=== PATIENT | female | born 1995 | race Caucasian/White ===

== ENCOUNTER 2020-05-03 16:49 | Emergency (ER) | payer OTHER, SELFPAY ==
--- NOTE | ~2020-05-03 | XR_ITS ---
XR knee LT 3V DATE: 05/03/2020 17:51 INDICATION: Bilateral knee pain TECHNIQUE: 3 views including crosstable lateral COMPARISON: None FINDINGS: No fracture or dislocation or joint effusion. No periosteal reaction or bone destruction. N o radiopaque intra-articular this body or chondrocalcinosis. IMPRESSION: No significant abnormality Reviewed, dictated and finalized at location A. IMPRESSION: No significant abnormality
--- NOTE | ~2020-05-03 | XR_ITS ---
XR soft tissue neck DATE: 05/03/2020 17:51 INDICATION: Dysphagia for one month. History of tonsillectomy. TECHNIQUE: AP and lateral views COMPARISON: None FINDINGS: No prevertebral soft tissue swelling. Normal size of the epiglottis. Normal tracheal air co lumn. No obvious soft tissue mass is detected. No subcutaneous emphysema, pneumothorax or pneumomedia stinum is evident. There is mild reversal cervical curvature. The cervical interspaces are well preserved. The cervical spine is normally aligned. IMPRESSION: No significant abnormality of the soft tissues of the neck Reviewed, dictated and finalized at location A.
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
[2020-05-03 17:02] VITALS: BP 129/77; PULSE 97; RESP 20; TEMP 36.8; O2SAT 100
[2020-05-03 18:51] VITALS: BP 132/70; PULSE 88; RESP 18; O2SAT 99
== END 2020-05-03 18:52 | disposition home or self-care (01) ==
PROVIDERS: Emergency Provider Emergency Medicine; PCP Family Medicine
DX: S00.83XA Contusion of other part of head, initial encounter (principal); V49.40XA Driver injured in collision with unspecified motor vehicles in traffic accident, initial encounter
CPT/HCPCS: 70360; 73562; 99284

== ENCOUNTER 2022-05-14 14:58 | Outpatient (CLI) | payer OTHER, SELFPAY ==
--- NOTE | ~2022-05-14 | XR_ITS ---
EXAMINATION: XR lumbar spine min 4V DATE: 05/14/2022 15:21 INDICATION: Bilateral leg pain. TECHNIQUE: 5 views of the lumbar spine were obtained. COMPARISON: CT abdomen and pelvis 03/09/2019 FINDINGS: Bone alignment is normal. Vertebral body heights and intervertebral disc heights are normal . There is multilevel mild facet joint osteoarthritis. IMPRESSION: 1. Mild lumbar facet joint osteoarthritis. Reviewed, dictated and finalized at location A.
== END 2022-05-14 14:59 | disposition home or self-care (01) ==
LOC: ANHIMG 15:01
PROVIDERS: PCP Family Medicine; Visit Provider Physician Assistant Medical
DX: M54.41 Lumbago with sciatica, right side (principal); M54.42 Lumbago with sciatica, left side; M51.36 Other intervertebral disc degeneration, lumbar region
CPT/HCPCS: 72110

== ENCOUNTER 2023-08-07 08:08 | Outpatient (CLI) | payer OTHER, SELFPAY ==
--- NOTE | ~2023-08-07 | DEXA_ITS ---
Bone Density Report Name: RADHA NOBLE Age: 27 Sex: Female Ethnicity: White Date of : 1995 Indication: skilled nursing use of Depo Provera Referring Provider: BIJU VO Study: Bone densitometry was performed. Exam Date: August 07, 2023 Accession number: [id number] Bone Density: Region BMD T-score Z-score Classification AP Spine(L1-L4) 0.945 -0.9 Femoral Neck (Left) 0.735 -1.0 Total Hip (Left) 0.907 -0.3 Femoral Neck (Right) 0.704 -1.2 Total Hip (Right) 0.880 -0.5 Total Hip Mean 0.894 -0.4 World Health Organization criteria for BMD impression classify patients as: Normal (T-score at or above -1.0), Osteopenia (T-score between -1.0 and -2.5), or Osteoporosis (T-score at or below -2.5). Clinical Information Provided by Patient: Patient maximum height was 67 No regular weight bearing exercise Does not regularly consume dairy products Drinks caffeinated beverages Onset of menses at age 11 Premenopausal Number of children 0 Impression: The patient's bone mass is within expected range for age, gender and ethnicity. Discussion: BONE DENSITY IS WITHIN EXPECTED LIMITS FOR AGE, SEX AND RACE. Bone density is within expected limits for age, sex and race at all sites measured. The patient should follow a healthful lifestyle (good nutrition with adequate calcium and vitamin D, and appropriate weight-bearing exercise). Follow-Up: Consider repeating this study in 5 years or sooner if there is some new clinical indication. Reported by: [facility] on 08/07/2023 8:27:00 AM. Reviewed, dictated and finalized at location [facility]
== END 2023-08-07 08:09 | disposition home or self-care (01) ==
LOC: ANHIMG 08:10
PROVIDERS: PCP Family Medicine; Visit Provider Family Medicine
DX: Z79.3 Long term (current) use of hormonal contraceptives (principal)
CPT/HCPCS: 77080

== ENCOUNTER 2024-01-16 19:14 | Emergency (ER) | payer OTHER, SELFPAY ==
--- NOTE | ~2024-01-16 | XR_ITS ---
EXAMINATION: XR chest 1V portable DATE: 01/16/2024 19:46 INDICATION: Chest pain. TECHNIQUE: A single frontal view of the chest was obtained. COMPARISON: Chest single view 08/05/2019, CT abdomen and pelvis 03/09/2019 FINDINGS: There is no pneumonia, pleural effusion, or pneumothorax. The heart size is normal. IMPRESSION: 1. No acute cardiopulmonary disease. Reviewed, dictated and finalized at location E.
--- NOTE | 2024-01-16 19:18 | ECG_ITS ---
SEE SCANNED COPY FOR CONFIRMED REPORT MTDD
[2024-01-16 19:22] VITALS: BP 118/76; PULSE 91; RESP 20; TEMP 36.4; O2SAT 100
[2024-01-16] MEDS: ASPIRIN 81 MG CHEWABLE TABLET 324 MG PO (19:27)
[2024-01-16 19:32] VITALS: PULSE 90
[2024-01-16 19:33] VITALS: O2SAT 100
[2024-01-16 19:35] LABS: Basophils Absolute Auto 0.1 K/mm3 (0.0-0.1); Basophils Percent Auto 0.5 % (0.2-1.2); Eosinophils Absolute Auto 0.1 K/mm3 (0-0.3); Eosinophils Percent Auto 1.2 % (0-4.4); Hematocrit 40.6 % (37.0-47.0); Hemoglobin 13.7 g/dL (12.0-15.0); Immature Granulocyte Absolute 0.02 K/mm3 (0.00-0.031); Immature Granulocyte Percent A 0.2 % (0-0.5); Lymphocytes Absolute Auto 4.27 K/mm3 (0.9-3.2); Lymphocytes Percent Auto 41.2 % (18.3-44.2); Mean Corpuscular HGB Conc 33.7 g/dl (32-36); Mean Corpuscular Hemoglobin 30.9 pg (26-34); Mean Corpuscular Volume 91.6 fl (80-100); Mean Platelet Volume 9.7 fl (7.4-10.4); Monocytes Absolute Auto 0.5 K/mm3 (0.1-0.6); Monocytes Percent Auto 4.9 % (2.6-8.5); Neutrophils Absolute Auto 5.4 K/mm3 (1.3-6.7); Platelet Count Result 301 k/mm3 (150-375); Red Blood Count 4.43 M/mm3 (4.2-5.4); White Blood Count 10.4 K/mm3 (4.5-10.0)
[2024-01-16 19:45] LABS: Alanine Aminotransferase 13 U/L (6-35); Albumin Level 4.8 g/dL (3.5-5.1); Alkaline Phosphatase 65 U/L (38-126); Anion Gap 8 mmol/L (4-12); Aspartate Amino Transferase 22 U/L (14-36); Bilirubin,Total 0.4 mg/dL (0.2-1.3); Blood Urea Nitrogen 16 mg/dL (7-17); Calcium 9.6 mg/dL (8.4-10.2); Carbon Dioxide 23 mmol/L (22-30); Chloride 110 mmol/L (98-107); Estimated CRCL calculation 76 ml/min; Estimated Glomerular Filt Rate > 60; Glucose 97 mg/dL (65-110); Lipase 186 U/L (23-300); Potassium 3.7 mmol/L (3.4-5.0); Sodium 141 mmol/L (137-145)
[2024-01-16 19:50] LABS: Prothrombin Time 13.8 Seconds (11.1-14.7)
[2024-01-16 19:51] LABS: Partial Thromboplastin Time 27.5 Seconds (22.3-36.8)
--- NOTE | 2024-01-16 19:52 | ED.CHESTPAIN ---
HPI - Chest Pain General Chief Complaint: Chest Pain Stated Complaint: chest pain Time Seen by Provider: 01/16/24 19:34 Source: patient Mode of arrival: ambulatory Limitations: no limitations History of Present Illness HPI narrative: Patient is a 28 y/o female who presents to the ED with c/o chest pain. Patient reports the pain began last night in the evening. Has been constant since the onset. Did become worse throughout the night and woke her up from her sleep at one point. Radiates through to her back. Denies aggravating or relieving factors. She has not taken for the pain. Does report pain is improved slightly currently. Denies shortness of breath, pain or swelling in her legs, abdominal pain, recent cough or cold symptoms, disease, lightheadedness. She does report recent diarrhea, intermittent nausea. Denies history of blood clots or cardiac disease. Related Data Allergies Allergy/AdvReac Type Severity Reaction Status Date / Time No Known Allergies Allergy Verified 05/15/22 13:28 Review of Systems Review of Systems: CONSTITUTIONAL: Denies fever, chills, or sweats. ENT: Denies rhinorrhea, congestion, sore throat. CARDIOVASCULAR: See HPI. RESPIRATORY: Denies cough or dyspnea. GASTROINTESTINAL: See HPI. MUSCULOSKELETAL: See HPI. NEUROLOGIC: Denies headache, dizziness, numbness, or weakness. All systems reviewed & are unremarkable except as noted in HPI and below PMFSH Past Medical History Medical History BMI 27.0-27.9,adult BMI 28.0-28.9,adult Chronic left-sided headaches Chronic tension-type headache, not intractable COVID-19 Encounter for contraceptive management Irritable bowel syndrome with diarrhea senior living current use of hormonal contraceptive Family History Family History Father COPD (chronic obstructive pulmonary disease) Emphysema lung Mother Hypertension COVID-19 Hyperlipidemia Sibling No problems noted. 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 HEAD: Normocephalic, atraumatic. RESPIRATORY: Airway patent, respirations nonlabored. Clear to auscultation bilaterally, no rales, rhonchi, wheezing. No focal lung sounds. CARDIOVASCULAR: Regular rate and rhythm without murmurs, rubs, or gallops. ABDOMINAL: Soft, no tenderness throughout abdomen, nondistended. Normoactive BS. MUSCULOSKELETAL: Moves all extremities. No gross deformities. No lower extremity edema. No calf tenderness. No chest wall tenderness to palpation. SKIN: Warm, dry, normal color. NEURO: A&O X3. Speech clear. PSYCHIATRIC: Appropriate mood and affect. Normal interaction. Course Vital Signs Vital signs: Vital Signs Temperature 97.6 F 01/16/24 19:22 Pulse Rate 91 01/16/24 19:22 Respiratory Rate 20 01/16/24 19:22 Blood Pressure 118/76 01/16/24 19:22 Pulse Oximetry 100 01/16/24 19:22 Oxygen Delivery Room Air 01/16/24 19:22 Temperature 97.6 F 01/16/24 19:22 Pulse Rate 88 01/16/24 20:22 Respiratory Rate 12 01/16/24 20:22 Blood Pressure 100/61 01/16/24 20:22 Pulse Oximetry 100 01/16/24 20:22 Oxygen Delivery Room Air 01/16/24 19:33 MDM - Chest Pain MDM Narrative Medical decision making narrative: Patient presented to ED with report of midsternal chest pain, radiating through to back, onset last night, constant since then. Reports mild improvement currently af
[2024-01-16 19:56] LABS: Troponin I < 0.012 ng/mL (0.000-0.034)
[2024-01-16 20:20] LABS: Magnesium 2.3 mg/dL (1.6-2.3)
[2024-01-16 20:22] VITALS: BP 100/61; PULSE 88; RESP 12; O2SAT 100
[2024-01-16 21:02] LABS: D Dimer 0.31 ug/mL (<0.48)
[2024-01-16 21:35] VITALS: BP 109/77; PULSE 76; RESP 18; O2SAT 98
== END 2024-01-16 21:38 | disposition home or self-care (01) ==
PROVIDERS: Emergency Medicine; Emergency Provider Physician Assistant; PCP Family Medicine
DX: R07.89 Other chest pain (principal); K58.0 Irritable bowel syndrome with diarrhea; Z86.16 Personal history of COVID-19
CPT/HCPCS: 36415; 71045; 80053; 83690; 83735; 84484; 85025; 85380; 85610; 85730; 93005; 99284; A9270

== ENCOUNTER 2024-10-15 15:36 | Outpatient (CLI) | payer OTHER, SELFPAY ==
--- NOTE | ~2024-10-15 | MR_ITS ---
EXAMINATION: MR brain/brain stem wo/w con DATE: 10/15/2024 16:32 INDICATION: Migraine, unspecified, not intractable. TECHNIQUE: Magnetic resonance imaging (MRI) of the brain and brainstem was performed without and with 16 mL MultiHance intravenous contrast. COMPARISON: Brain MRI 09/25/2012 FINDINGS: There is no intracranial hemorrhage, acute infarction, or abnormal intracranial mass lesion . The ventricles are normal in size. The orbits are normal. The paranasal sinuses are clear. The mast oid air cells are normal. IMPRESSION: 1. Normal brain. Reviewed, dictated and finalized at location A. IC WORKS TECHNICIAN IMPRESSION: 1. Normal brain.
--- OUTSIDE RECORDS SUMMARY | 2024-10-15 15:39 | XMS_ITS | Clinical Summary ---
Author Organization [facility] [email or web address] Address [address] [place] [address] Care Team Providers Care Tool Setter Name Role Phone Unavailable Primary Care Provider Unavailabl e Source Comments [facility] [email or web address],non-owned Affiliates and Associated Physician Practices is amultiple site organization consisting of ambulatory clinics and hospital sitesin [place], [place], [place] and [place]. This disclosure is being madepursuant to the Care Everywhere program and may not contain all information available regarding this patient. Last updated 18.[facility] [email or web address] Allergies No known active allergies Medications Be aware that medications may not be up to date on this document. Always verify current medications with the patient. No known medications Social History Tobacco Use Types Packs/Day Years Used Date Smoking Tobacco: Never Assessed Sex and Gender Information Value Date Recorded Sex Assigned at Not on file Gender Identity Not on file Sexual Orientation Not on file Last Filed Vital Signs Vital Sign Reading Time Taken Comments Blood Pressure 112/76 08/31/2016 4:38 PM TIMBER MANAGEMENT SPECIALIST Pulse 90 08/31/2016 4:38 PM TIMBER MANAGEMENT SPECIALIST Temperature 37.7 C (99.8 F) 08/31/2016 4:38 PM TIMBER MANAGEMENT SPECIALIST Respiratory Rate 16 08/31/2016 4:38 PM TIMBER MANAGEMENT SPECIALIST Oxygen Saturation - - Inhaled Oxygen Concentration - - Weight 61.2 kg (135 lb) 08/31/2016 4:38 PM TIMBER MANAGEMENT SPECIALIST Height 172.7 cm (5' 8 ) 08/31/2016 4:38 PM TIMBER MANAGEMENT SPECIALIST Body Mass Index 20.53 08/31/2016 4:38 PM TIMBER MANAGEMENT SPECIALIST Plan of Treatment Health Maintenance Due Date Last Done Comments PAP SMEAR 1995 HIV SCREENING 2009 HEPATITIS C SCREENING 09/18/2012 DTAP/TDAP/TD VACCINES (1 - Tdap) 2013 HEPATITIS B VACCINE (1 of 3 - 19+ 3-dose series) 2013 COVID-19 VACCINE (1 2023-2 5 season) 2024 INFLUENZA VACCINE (#1) 2024 DEPRESSION SCREENING 09/02/2024 ZOSTER VACCINE (1 of 2) 2044 HIB VACCINE Aged Out No longer eligi ble based on patient's age to complete this topic HPV VACCINE Aged Out No longer eligi ble based on patient's age to complete this topic MENINGOCOCCAL (Group B) VACCINE Aged Out No longer eligible based on patient's age to complete this topic MENINGOCOCCAL VACCINE Aged Out No will mukesh eligible based on patient's age to complete this topic PNEUMOCOCCAL VACCINE Aged Out No long er eligible based on patient's age to complete this topic
--- OUTSIDE RECORDS SUMMARY | 2024-10-15 15:39 | XMS_ITS | Referral Summary ---
Author Organization [facility] [employer] Address [address] [place] [address] Care Team Providers Care Cancer Program Coordinator Name Role Phone Unavailable Primary Care Provider Unavailabl e Source Comments [facility] [employer],non-owned Affiliates and Associated Physician Practices is amultiple site organization consisting of ambulatory clinics and hospital sitesin [place], [place]. This disclosure is being madepursuant to the Care Everywhere program and may not contain all information available regarding this patient. Last updated 18.[facility] [employer] Allergies No known active allergies Medications Be [...] Comments Blood Pressure 112/76 08/31/2016 4:38 PM JUDGE CLERK Pulse 90 08/31/2016 4:38 PM JUDGE CLERK Temperature 37.7 C (99.8 F) 08/31/2016 4:38 PM JUDGE CLERK Respiratory Rate 16 08/31/2016 4:38 PM JUDGE CLERK Oxygen Saturation - - Inhaled Oxygen Concentration - - Weight 61.2 kg (135 lb) 08/31/2016 4:38 PM JUDGE CLERK Height 172.7 cm (5' 8 ) 08/31/2016 4:38 PM JUDGE CLERK Body Mass Index 20.53 08/31/2016 4:38 PM JUDGE CLERK Plan of Treatment Not on file
--- OUTSIDE RECORDS SUMMARY | 2024-10-15 15:39 | XMS_ITS | Patient Health Summary ---
Author Organization [facility] [employer] Address [address] [place] [address] Care Team Providers Care Fish Technologist Name Role Phone Unavailable Primary Care Provider Unavailabl e Note from [facility] [employer] [facility],non-owned Affiliates and Associated Physician Practices is amultiple site organization consisting of ambulatory clinics and hospital sitesin [place], [place], [place] and [place]. This disclosure is being madepursuant to the Care Everywhere program and may not contain all information available regarding this patient. Last updated 18.[facility] [employer] Allergies No known active allergies Medications Be [...] Comments Blood Pressure 112/76 08/31/2016 4:38 PM HIGHER LEVEL TEACHING ASSISTANT Pulse 90 08/31/2016 4:38 PM HIGHER LEVEL TEACHING ASSISTANT Temperature 37.7 C (99.8 F) 08/31/2016 4:38 PM HIGHER LEVEL TEACHING ASSISTANT Respiratory Rate 16 08/31/2016 4:38 PM HIGHER LEVEL TEACHING ASSISTANT Oxygen Saturation - - Inhaled Oxygen Concentration - - Weight 61.2 kg (135 lb) 08/31/2016 4:38 PM HIGHER LEVEL TEACHING ASSISTANT Height 172.7 cm (5' 8 ) 08/31/2016 4:38 PM HIGHER LEVEL TEACHING ASSISTANT Body Mass Index 20.53 08/31/2016 4:38 PM HIGHER LEVEL TEACHING ASSISTANT Procedures * DERMATOPATHOLOGY(Performed 05/15/2022) * INFLUENZA A+B - POINT OF CARE (AMB)(Performed 08/31/2016) Performed for Acute nasopharyngitis (common cold) * STREP A SCREEN - POINT OF CARE (AMB) STL(Performed 08/31/2016) Performed for Acute pharyngitis, unspecified etiology Results * DERMATOPATHOLOGY (05/15/2022 12:00 AM CDT) Case Report Dermatopathology Report Case: [id number] Authorizing Provider: Carroll Olmos MD Collected: 05/15/2022 12:00 AM Ordering Location: [facility] Received: 05/16/2022 08:33 AM Pathologist: Aaron Whitten MD Specimen: Skin, right low back 11:53 AM CDT DERMATOPATHOLOGY LABORATORY Final Diagnosis Specimen A. SKIN, right low back: COMPOUND MELANOCYTIC NEVUS, IRRITATED (D22.5) PRESENT AT MARGIN 11:53 AM CDT DERMATOPATHOLOGY LABORATORY Clinical History Changing Lesion. Please Check Margins. 11:53 AM CDT DERMATOPATHOLOGY LABORATORY Gross Description Specimen A: Received is one formalin filled container labeled with the patient's name and designated right low back. The specimen consists of a shave biopsy measuring [id number] and it is inked. Jar 0. 11:53 AM CDT DERMATOPATHOLOGY LABORATORY Microscopic Description Specimen A. SKIN, right low back: There is melanin pigment in the stratum corneum. There are nests of melanocytes at the dermal-epidermal junction and within the dermis. This lesion is present at the margin of the specimen. 11:53 AM CDT DERMATOPATHOLOGY LABORATORY Disclaimer An external and internal positive and negative controls are appropriate for the histochemical, immunohistochemical and immunofluorescence stain(s) in this case (if any), except where stated explicitly. The performance characteristics of the stain(s) cited in this report were developed and its performance characteristic determined by the Dermatopathology Laboratory at [facility], directed by Dr. Naresh Whitten. These tests need not be, and therefore are not, approved by the [place] Food and Drug Administration. The tests are used for clinical purposes. Billing Codes Specimen Charges Stain Charges 45706 1 11:53 AM CDT DERMATOPATHOLOGY LABORATORY Embedded Images 11:53 AM CDT DERMATOPATHOLOGY LABORATORY Pathology/Cytolog y TISSUE SPECIMEN FROM SKIN / Unknown 05/15/2022 05/16/2022 8:33 AM CDT Carroll Olmos MD LAB - PATHOLOGY/CYTO LOGY ORDERABLES DERMATOPATHOLOGY LABORATORY [facility] - Department of Dermatology [address], [address] [phone] * INFLUENZA A+B - POINT OF CARE (AMB) (08/31/2016 4:55 PM HIGHER LEVEL TEACHING ASSISTANT) Influenza A Antigen Rapid Negative Negative Influenza B Antigen Rapid Negative Negative Influenza Internal Control positive NEGATIVE - POSITIVE Influenza Lot Number [id number] Influenza Expiration Date 3312,018 Other NASOPHARYNGEAL SWAB / Unknown 08/31/2016 4:55 PM HIGHER LEVEL TEACHING ASSISTANT Yeny Smith [facility] LAB - POINT O F CARE ORDERABLES * STREP A SCREEN (08/31/2016 4:43 PM HIGHER LEVEL TEACHING ASSISTANT) Strep A Rapid POCT Negative Negative Strep A Internal Control Present Lot # [id number] Expiration Date 8234184 Throat ENTIRE THROAT (SURFACE REGION OF NECK) / Unknown 08/31/2016 4:43 PM HIGHER LEVEL TEACHING ASSISTANT Yeny Smith [facility] - POINT O F CARE ORDERABLES
--- OUTSIDE RECORDS SUMMARY | 2024-10-15 15:39 | XMS_ITS | Encounter Summary ---
Author Organization [facility] Address [address] [place] [address] Care Team Providers Care Air Traffic Instructor Name Role Phone Unavailable Primary Care Provider Unavailabl e Encounter Details Date Type Department Care Team (Late st Contact Info) Description 05/16/2022 Lab Requisition [facility] [address] [place] [address] Carroll Olmos MD [address] [place] [address] Social History Tobacco Use Types Packs/Day Years Used Date Smoking Tobacco: Never Assessed Sex and Gender Information Value Date Recorded Sex Assigned at Not on file Gender Identity Not on file Sexual Orientation Not on file documented as of this encounter Plan of Treatment Not on file documented as of this encounter Procedures Procedure Name Priority Date/Time Associated Diagnosis Comments DERMATOPATHOLOGY Routine 05/15/2022 12:0 0 AM CDT documented in this encounter Results * DERMATOPATHOLOGY (05/15/2022 12:00 AM CDT) Case Report Dermatopathology Report Case: [id number] Authorizing Provider: Carroll Olmos MD Collected: 05/15/2022 12:00 AM Ordering Location: [facility] Received: 05/16/2022 08:33 AM Pathologist: [...] specimen consists of a shave biopsy measuring [id number] and it is inked. Jar 0. 11:53 [...] characteristic determined by the Dermatopathology Laboratory at [facility], directed by Dr. Naresh Whitten. These tests need not be, and therefore are not, approved by the [place] Food and Drug Administration. The tests are used for clinical purposes. Billing Codes Specimen Charges Stain Charges 50794 1 11:53 AM CDT DERMATOPATHOLOGY LABORATORY Embedded Images 11:53 AM CDT DERMATOPATHOLOGY LABORATORY Pathology/Cytolog y TISSUE SPECIMEN FROM SKIN / Unknown 05/15/2022 05/16/2022 8:33 AM CDT Carroll Olmos MD LAB - PATHOLOGY/CYTO LOGY ORDERABLES DERMATOPATHOLOGY LABORATORY [facility] - Department of Dermatology [address] [place] [address], [facility] [phone] documented in this encounter Visit Diagnoses Not on filedocumented in this encounter
== END 2024-10-15 15:37 | disposition home or self-care (01) ==
PROVIDERS: PCP Family Medicine; Visit Provider Nurse Practitioner Family
DX: G43.909 Migraine, unspecified, not intractable, without status migrainosus (principal); H53.9 Unspecified visual disturbance; R47.81 Slurred speech
CPT/HCPCS: 70553; A9577

== ENCOUNTER 2025-04-12 17:53 | Emergency (ER) | payer OTHER, SELFPAY ==
--- NOTE | ~2025-04-12 | XR_ITS ---
HISTORY: low back pain COMPARISON: 05/14/2022 TECHNIQUE: 2 view lumbar spine. FINDINGS: Lumbar vertebral bodies are normally aligned. There are 5 non-rib bearing lumbar vertebral bodies. Disc spaces and vertebral body heights are well maintained. There are no lytic or sclerotic lesions. Paraspinal soft tissues are unremarkable IMPRESSION: Unremarkable lumbar spine series. Reviewed, dictated and finalized at location A.
--- NOTE | ~2025-04-12 | XR_ITS ---
CHEST RADIOGRAPH, PA AND LATERAL CLINICAL HISTORY: left chest wall pain . COMPARISON: 01/16/2024 TECHNIQUE: PA and lateral views of the chest. FINDINGS The cardiomediastinal silhouette is unremarkable. The lungs are clear. IMPRESSION: No focal infiltrate or effusion. Reviewed, dictated and finalized at location A.
[2025-04-12 17:54] VITALS: BP 138/80; PULSE 99; RESP 15; TEMP 37; O2SAT 100
--- OUTSIDE RECORDS SUMMARY | 2025-04-12 17:54 | XMS_ITS | Encounter Summary ---
Author Organization [facility] Address [address] [place] [address] Care Team Providers Care Airport Operations Officer Name Role Phone Unavailable Primary Care Provider Unavailabl e Encounter Details Date Type Department Care Team (Late st Contact Info) Description 05/16/2022 Lab Requisition [facility] DermPath Lab [address] [place] [address] Carroll Olmos MD [address] [place] [address] Social History Tobacco Use Types Packs/Day Years Used Date Smoking Tobacco: Never Assessed Comments Unknown Sex and Gender Information Value Date Recorded Sex Assigned at Not on file 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 Gender Identity Not on file Sexual Orientation Not on file documented as of this encounter Plan of Treatment Not on file documented as of this encounter Procedures Procedure Name Priority Date/Time Associated Diagnosis Comments DERMATOPATHOLOGY Routine 05/15/2022 12:0 0 AM CDT documented in this encounter Results * DERMATOPATHOLOGY (05/15/2022 12:00 AM CDT) Case Report Dermatopathology Report Case: [id number] Authorizing Provider: Carroll Olmos MD Collected: 05/15/2022 12:00 AM Ordering Location: [facility] Derm[facility] Lab Received: 05/16/2022 08:33 AM Pathologist: Aaron Whitten MD Specimen: Skin, right low back 11:53 AM CDT DERMATOPATHOLOGY LABORATORY Final Diagnosis Specimen A. SKIN, right low back: COMPOUND MELANOCYTIC NEVUS, IRRITATED (D22.5) PRESENT AT MARGIN 11:53 AM CDT DERMATOPATHOLOGY LABORATORY at 1153 CDT Clinical History Changing Lesion. Please Check Margins. 11:53 AM CDT DERMATOPATHOLOGY LABORATORY Gross Description Specimen A: Received is one formalin filled container labeled with the patient's name and designated right low back. The specimen consists of a shave biopsy measuring [id number] and it is inked. Jar 0. 11:53 [...] characteristic determined by the Dermatopathology Laboratory at [facility], directed by Dr. Naresh Whitten. These tests need not be, and therefore are not, approved by the [place] Food and Drug Administration. The tests are used for clinical purposes. Billing Codes Specimen Charges Stain Charges 85218 1 11:53 AM CDT DERMATOPATHOLOGY LABORATORY Embedded Images 11:53 AM CDT DERMATOPATHOLOGY LABORATORY Pathology/Cytolog y TISSUE SPECIMEN FROM SKIN / Unknown 05/15/2022 05/16/2022 8:33 AM CDT us Carrollnehemiah Olmos MD LAB - PATHOLOGY/CYTOLOGY BAYLEE FERNANDEZ Final Result DERMATOPATHOLOGY LABORATORY [facility] - Department of Dermatology [address], [address] [phone] documented in this encounter Visit Diagnoses Not on filedocumented in this encounter
--- OUTSIDE RECORDS SUMMARY | 2025-04-12 17:54 | XMS_ITS | Clinical Summary ---
Author Organization [facility] [employer] Address [address] [place] [address] Care Team Providers Care Healthcare Consulting Manager Name Role Phone Unavailable Primary Care Provider Unavailabl e Source Comments [facility] [employer],non-owned Affiliates and Associated Physician Practices is amultiple site organization consisting of ambulatory clinics and hospital sitesin [place], [place], [place] and [place]. This disclosure is being madepursuant to the Care Everywhere program and may not contain all information available regarding this patient. Last updated 18.[facility] [employer] Allergies No known active allergies Medications * Be aware that medications may not be up to date on this document. Alwaysverify current medications with the patient. 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 Gender Identity Not on file Sexual Orientation Not on file Last Filed Vital Signs Vital Sign Reading Time Taken Comments Blood Pressure 112/76 08/31/2016 4:38 PM SAMPLE COLOR MAKER Pulse 90 08/31/2016 4:38 PM SAMPLE COLOR MAKER Temperature 37.7 C (99.8 F) 08/31/2016 4:38 PM SAMPLE COLOR MAKER Respiratory Rate 16 08/31/2016 4:38 PM SAMPLE COLOR MAKER Oxygen Saturation - - Inhaled Oxygen Concentration - - Weight 61.2 kg (135 lb) 08/31/2016 4:38 PM SAMPLE COLOR MAKER Height 172.7 cm (5' 8) 08/31/2016 4:38 PM SAMPLE COLOR MAKER Body Mass Index 20.53 08/31/2016 4:38 PM SAMPLE COLOR MAKER Plan of Treatment Health Maintenance Due Date Last Done Comments HIV SCREENING 2009 HEPATITIS C SCREENING 09/18/2012 DTAP/TDAP/TD VACCINES (1 - Tdap) 2013 HEPATITIS B VACCINE (1 of 3 - 19+ 3-dose series) 2013 PAP SMEAR 2015 HPV VACCINE (1 - 3-dose SCDM series) 2021 COVID-19 VACCINE (1 - 2023-2 5 season) 2024 DEPRESSION SCREENING 09/02/2024 INFLUENZA VACCINE (#1) 2025 ZOSTER VACCINE (1 of 2) 2044 HIB VACCINE Aged Out No longer eligi ble based on patient's age to complete this topic MENINGOCOCCAL (Group B) VACC INE SHARED DECISION-MAKING Aged Out No longer eligibl e based on patient's age to complete this topic MENINGOCOCCAL GROUPS A/C/Y/W VACCINE Aged Out No longer eligible b ased on patient's age to complete this topic PNEUMOCOCCAL VACCINE Aged Out No long er eligible based on patient's age to complete this topic [place] [place] [address] [facility]
--- OUTSIDE RECORDS SUMMARY | 2025-04-12 18:32 | XMS_ITS | Encounter Summary ---
Author Organization [facility] Address [address] [place] [address] Care Team Providers Care State Patrol Officer Name Role Phone Unavailable Primary Care Provider Unavailabl e Encounter Details Date Type Department Care Team (Late st Contact Info) Description 05/16/2022 Lab Requisition [facility] DermPath Lab [address] [place] [address] Carroll Olmos MD [address] [place] [address] Social History Tobacco Use Types Packs/Day Years Used Date Smoking Tobacco: Never Assessed Comments Unknown Sex and Gender Information Value Date Recorded Sex Assigned at Not on file 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 Gender Identity Not on file Sexual Orientation Not on file documented as of this encounter Plan of Treatment Not on file documented as of this encounter Procedures Procedure Name Priority Date/Time Associated Diagnosis Comments DERMATOPATHOLOGY Routine 05/15/2022 12:0 0 AM CDT documented in this encounter Results * DERMATOPATHOLOGY (05/15/2022 12:00 AM CDT) Case Report Dermatopathology Report Case: [id number] Authorizing Provider: Carroll Olmos MD Collected: 05/15/2022 12:00 AM Ordering Location: [facility] DermPath Lab Received: 05/16/2022 08:33 AM [...] specimen consists of a shave biopsy measuring [id number] and it is inked. Jar 0. 11:53 [...] characteristic determined by the Dermatopathology Laboratory at [facility], directed by Dr. Naresh Whitten. These tests need not be, and therefore are not, approved by the [place] Food and Drug Administration. The tests are used for clinical purposes. Billing Codes Specimen Charges Stain Charges 53037 1 11:53 AM CDT DERMATOPATHOLOGY LABORATORY Embedded Images 11:53 AM CDT DERMATOPATHOLOGY LABORATORY Pathology/Cytolog y TISSUE SPECIMEN FROM SKIN / Unknown 05/15/2022 05/16/2022 8:33 AM CDT us Carrollnehemiah Olmos MD LAB - PATHOLOGY/CYTOLOGY BAYLEE FERNANDEZ Final Result DERMATOPATHOLOGY LABORATORY [facility] - Department of Dermatology [address] [phone] documented in this encounter Visit Diagnoses Not on filedocumented in this encounter
--- OUTSIDE RECORDS SUMMARY | 2025-04-12 18:32 | XMS_ITS | Clinical Summary ---
Author Organization [facility] [employer] Address [address] [place] [address] Care Team Providers Care Printing Worker Supervisor Name Role Phone Unavailable Primary Care Provider Unavailabl e Source Comments [facility] [employer]non-owned Affiliates and Associated Physician Practices is amultiple site organization consisting of ambulatory clinics and hospital sitesin [place], [place], [place] and [place]. This disclosure is being madepursuant to the Care Everywhere program and may not contain all information available regarding this patient. Last updated 18.[facility] [employer] Allergies No known active allergies Medications * Be aware that medications may not be up to date on this document. Alwaysverify current medications with the patient. 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 Gender Identity Not on file Sexual Orientation Not on file Last Filed Vital Signs Vital Sign Reading Time Taken Comments Blood Pressure 112/76 08/31/2016 4:38 PM METAL FABRICATING SHOP HELPER Pulse 90 08/31/2016 4:38 PM METAL FABRICATING SHOP HELPER Temperature 37.7 C (99.8 F) 08/31/2016 4:38 PM METAL FABRICATING SHOP HELPER Respiratory Rate 16 08/31/2016 4:38 PM METAL FABRICATING SHOP HELPER Oxygen Saturation - - Inhaled Oxygen Concentration - - Weight 61.2 kg (135 lb) 08/31/2016 4:38 PM METAL FABRICATING SHOP HELPER Height 172.7 cm (5' 8) 08/31/2016 4:38 PM METAL FABRICATING SHOP HELPER Body Mass Index 20.53 08/31/2016 4:38 PM METAL FABRICATING SHOP HELPER Plan of Treatment Health Maintenance Due Date [...] patient's age to complete this topic [place] [address] [place] [address] [facility]
[2025-04-12] MEDS: IBUPROFEN 600 MG TABLET PO (18:53)
[2025-04-12] MEDS: ACETAMINOPHEN 500 MG TABLET 1000 MG PO (18:54)
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
--- NOTE | 2025-04-12 19:10 | PC.NURSE ---
Received report from BRAEDEN Collins for cont. of care. Pt being taken to X-ray at this time.
[2025-04-12 20:07] VITALS: BP 127/94; PULSE 77; RESP 16; O2SAT 97
== END 2025-04-12 20:10 | disposition home or self-care (01) ==
PROVIDERS: Emergency Provider Emergency Medicine; PCP Family Medicine
DX: S39.92XA Unspecified injury of lower back, initial encounter (principal); R07.89 Other chest pain; K58.0 Irritable bowel syndrome with diarrhea; G44.229 Chronic tension-type headache, not intractable; Z86.16 Personal history of COVID-19; V49.40XA Driver injured in collision with unspecified motor vehicles in traffic accident, initial encounter
CPT/HCPCS: 71046; 72100; 99284; A9270